=== PATIENT | male | born 1985 | race Two or more races ===

== ENCOUNTER 2020-06-04 17:33 | Emergency (ER) | payer OTHER, SELFPAY ==
[2020-06-04 18:26] VITALS: BP 118/78; PULSE 71; RESP 16; TEMP 37.7; O2SAT 98; BMI 23.7
--- NOTE | 2020-06-04 19:40 | ED.GENADULT ---
HPI - General Adult General Chief complaint: Headache Stated complaint: headache Time Seen by Provider: 06/04/20 19:34 Source: patient Mode of arrival: ambulatory Limitations: no limitations History of Present Illness HPI narrative: patient comes to the emergency room complaining of a headache. 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 Patient has not taking any Tylenol. Patient denies shortness of breath, no allergic reaction, no skin rash, no runny nose, no congestion, no upper respiratory symptoms. MD complaint: Headache Onset (ago): hour(s) Related Data Allergies Allergy/AdvReac Type Severity Reaction Status Date / Time No Known Allergies Allergy Unverified 05/03/20 17:16 [No Known Allergies*] Review of Systems Review of Systems: Constitutional : No Weight loss, No Fever, No Chills, No Night Sweats, No Fatigue, No Malaise ENT/Mouth : No Hearing loss, No Ear Pain, No Nasal Congestion, No Sinus Pain, No Hoarseness, No sore throat, No Rhinorrhea, No Swallowing Difficulty Eyes: No Eye Pain, No Swelling, No Redness, No Foreign Body, No Discharge, No Vision Changes Cardiovascular : No Chest Pain, No SOB, No Dyspnea on Exertion, No Orthopnea, No Edema, No Palpitations Respiratory : No Cough, No Sputum, No Wheezing, No Smoke Exposure, No Dyspnea Gastrointestinal : No Nausea, No Vomiting, No Diarrhea, No Constipation, No abdominal Pain, No Hematochezia, No Melena Genitourinary : no irregular bleeding, No Dysuria, No Urinary Frequency, No Hematuria, No Urinary Incontinence, No Urgency, No Flank Pain, No Urinary Flow Changes, No Hesitancy Musculoskeletal : No joint pain, No Myalgias, No Joint Swelling Skin : No Skin Lesions, No rash Neuro : No Weakness, No Numbness, No Paresthesias, No Loss of Consciousness, No Dizziness, mild Headache Psych : No Anxiety/Panic, No Depression, No SI/HI/AH/VH, No Social Issues, Heme/Lymph: No Bruising, No Bleeding,No Lymphadenopathy Endocrine : No Polyuria, No Polydipsia, No Temperature Intolerance PMFSH Past Medical History Medical History Asthma Social History Social History Advance Directives: No Advance Directives Information Provided: No Physical Exam Vital Signs: Vital Signs: Vital Signs Temp Pulse Resp BP Pulse Ox 06/04/20 18:26 99.9 F 71 16 118/78 98 Body Mass Index 23.7 Appearance: Alert. Oriented X3. No acute distress. Eyes: Pupils equal, round and reactive to light. ENT: Pharynx normal. Neck: Normal inspection. Neck supple. No lymph nodes noted. No crepitus CVS: Normal heart rate and rhythm. Pulses normal. Normal S1 and S2 Respiratory: No respiratory distress. Breath sounds normal. No Wheezing. No rales Abdomen: Soft and nontender. No rigidity. No distention. good BS x4 Skin: Skin warm and dry. Normal skin color. Normal skin turgor. Extremities: No lower extremity edema. No lower extremity edema. No Lacerations. No Rash Neuro: Oriented X 3. No motor deficit. No sensory deficit. Moving all extermities. No slurred speech. Course Course Course Narrative: patient states he is nearly asymptomatic, has mild headache has not taking any Tylenol or ibuprofen yet since this morning Medical Decision Making MDM Narrative Medical decision making narrative: patient has a mild headache, given Tylenol. Patient will follow-up with his primary care physician. Patient has no upper respiratory symptoms to suspect that he had a significant exposure to the insulation material Discharge Plan Discharge Clinical Impression: Headache Patient Disposition: Home, Self-Care Instructions: Acute Headache (ED) Additional Instructions: if you have headache, you may take Tylenol or ibuprofen Please follow-up with your primary care physician tomorrow. If you have any worsening or new symptoms, please return to the emergency room or call 911 Stand Alone Forms: Work/School Release
[2020-06-04] MEDS: Ibuprofen 600 MG TABLET PO (19:46)
== END 2020-06-04 20:00 | disposition home or self-care (01) ==
PROVIDERS: Emergency Provider Emergency Medicine; PCP Internal Medicine
DX: R51.9 Headache, unspecified (principal)
CPT/HCPCS: 99283

== ENCOUNTER 2021-06-01 09:52 | Emergency (ER) | payer OTHER, SELFPAY ==
--- NOTE | ~2021-06-01 | XR_ITS ---
EXAMINATION: XR KNEE, RIGHT CLINICAL INFORMATION: Right-sided knee pain. COMPARISON: None TECHNIQUE: Four views of the right knee. FINDINGS: Bones and soft tissues are normal. No fracture. Small suprapatellar effusion. Alignment is anatomic. Joint spaces are well maintained. No abnormal soft tissue calcification. XR/XR knee RT 4V IMPRESSION: 1. Small suprapatellar effusion. 2. Otherwise unremarkable radiographic appearance of the right knee.
[2021-06-01 10:04] VITALS: BP 128/87; PULSE 81; RESP 18; TEMP 36.1; O2SAT 99; BMI 25.0
--- NOTE | 2021-06-01 10:54 | ED_ITS ---
HPI - Extremity Injury (Lower) General Chief Complaint: Extremity Injury, Lower Stated Complaint: L KNEE INJ Time Seen by Provider: 06/01/21 09:53 Source: patient Mode of arrival: ambulatory History of Present Illness HPI Narrative: 36-year-old male presenting to the ED complaining of atraumatic right knee pain x2 days. Reports associated swelling and pain with movement/ambulation. Denies known injury/trauma or fall/tissue injury. Denies numbness, tingling, weakness complaint: knee injury Related Data Previous Rx's Medication Instructions Recorded albuterol sulfate 90 mcg/actuation 1 puff INHALATION QID 30 Days #8.5 12/10/20 aerosol inhaler g fexofenadine 180 mg tablet 180 mg PO DAILY #90 tab 12/10/20 (Linnea Allergy) acetaminophen 500 mg tablet 500 mg PO Q6H PRN #20 tab 06/01/21 (Tylenol Extra Strength) naproxen 500 mg tablet 500 mg PO BID PRN 10 Days #20 tab 06/01/21 Allergies Allergy/AdvReac Type Severity Reaction Status Date / Time No Known Allergies Allergy Verified 06/07/20 11:39 [No Known Allergies*] Review of Systems 2 Review of Systems: Constitutional: No Fever, No Chills ENT/Mouth: No Ear Pain, No Nasal Congestion, No sore throat Cardiovascular: No Chest Pain, No SOB Respiratory: No Cough Gastrointestinal: No Nausea, No Vomiting, No Diarrhea, No Constipation, No Abdominal pain Genitourinary:, No Dysuria, No Urgency, No Flank Pain Musculoskeletal: + joint pain, No Myalgias, + Joint Swelling Skin: No Skin Lesions, No rash Neuro: No Weakness, No Numbness, No Paresthesias Yes all other systems are reviewed and are negative [facility] Past Medical History Attestation statement: The following information was validated with the patient. Medical History (Updated 06/01/21 @ 11:01 by HERRERA Wells) Allergic rhinitis Asthma Surgical History History of wisdom tooth extraction Family History Family History (Updated 06/06/20 @ 14:52 by SCOTT Chiu) Father Diabetes Mother Alive and well Social History Social History (Updated 12/10/20 @ 16:43 by Timothy Nicole MD) Alcohol intake: current Alcohol intake frequency: holidays/special occasions only Advance Directives: No Advance Directives Information Provided: No Physical Exam Vital Signs: Vital Signs: Last Vital Signs Temp 97.0 F 06/01/21 10:04 Pulse 81 06/01/21 10:04 Resp 18 06/01/21 10:04 BP 128/87 06/01/21 10:04 Pulse Ox 99 06/01/21 10:04 Body Mass Index 25.0 Const: General: cooperative, healthy appearing, no acute distress, well developed, alert and awake Orientation/consciousness: patient oriented x3 Limitations: no limitations HENMT: Head: Yes normal to inspection and Yes atraumatic Ears: hearing grossly normal bilaterally General nose exam: Normal external nose present Face and sinus: Yes normal facial exam Eyes: General: appearance normal, both eyes and all related structures EOM: EOMs intact bilaterally Neck: Neck: Yes normal visual inspection Resp: Effort & Inspection: normal respiratory effort and no respiratory distress Cardio: Rate: regular rate Peripheral pulses: dorsalis pedis present Skin: Rashes: no rashes Wounds: no wounds Neuro: General: patient oriented x3 Gait exam (Neuro): Normal gait present Extrem: Other: Right knee with suprapatellar swelling greater to medial aspect. Tender to palpation. Decreased flexion secondary to pain. Extension WNL. No erythema. Neurovascularly intact distally. No deformity Course Reevaluation(s) Reevaluation #1: XR knee RT 4V IMPRESSION: ? 1. Small suprapatellar effusion. 2. Otherwise unremarkable radiographic appearance of the right knee. >> results discussed with patient. Patient placed in John wrap for comfort/debility. Is to follow up with PCP/Orthopedics as needed. Discussed with patient likely needs MRI outpatient for further eval Time: 10:59 MDM - Extremity Injury (Lower) MDM Narrative Medical decision making narrative: 36-year-old male presenting to the ED complaining of atraumatic right knee pain x2 days. On exam VSS, NAD, physical exam as above. Concern for ligamentous/tendon or meniscal injury without known injury/trauma or fall. Will obtain x-rays. Medical Records Attestation: I reviewed the patient's medical records. Lab Data Attestation: I reviewed the patient's lab results. Discharge Plan Discharge Clinical Impression: Suprapatellar effusion of knee Patient Disposition: Home, Self-Care Instructions: Swollen Knee Joint (ED) Additional Instructions: Your x-ray shows fluid above your knee cap. You likely have a ligamental/tendon or meniscal injury. Wear John wrap at home for comfort/stabilization. Ice and elevate her knee. Follow up with her primary care doctor and Orthopedics as needed. You likely need MRI for further evaluation.Naproxen as an anti- inflammatory/pain medication, take with food. In addition take Tylenol Fagan radiograf?a muestra l?quido por encima de la r?tamika. Es probable que tenga shonda lesi?n de ligamentos, tendones o meniscos. Use la envoltura John en casa para mayor comodidad / estabilizaci?n. Hielo y eleve fagan rodilla. Corine un seguimiento con fagan m?dico de atenci?n primaria y ortopedia seg?n sea necesario. Es probable que necesite shonda resonancia magn?maribell para shonda evaluaci?n adicional.El naproxeno amada medicamento antiinflamatorio / analg?sico, t?forte con las comidas. Adem?s, tome Tylenol Prescriptions: New acetaminophen [Tylenol Extra Strength] 500 mg tablet 500 mg PO Q6H PRN (Reason: pain or fever) Qty: 20 RF: 0 naproxen 500 mg tablet 500 mg PO BID PRN (Reason: pain) 10 Days Qty: 20 RF: 0 No Action fexofenadine [Linnea Allergy] 180 mg tablet 180 mg PO DAILY Qty: 90 RF: 1 albuterol sulfate 90 mcg/actuation HFA aerosol inhaler 1 puff inhalation QID 30 Days Qty: 8.5 RF: 0 Referrals: Po,Timothy Chase MD [Primary Care Provider] - 2 days Salvador Talavera PA-C [Physician System Support Analyst] - 1 week (as needed) Print Language: Senegalese
== END 2021-06-01 11:17 | disposition home or self-care (01) ==
PROVIDERS: Emergency Provider Emergency Medicine; PCP Internal Medicine
DX: M25.461 Effusion, right knee (principal); J45.909 Unspecified asthma, uncomplicated
CPT/HCPCS: 73564; 99283

== ENCOUNTER 2021-07-04 11:22 | Outpatient (REF) | payer OTHER, SELFPAY | END 2021-07-04 11:23 | disposition home or self-care (01) | LOC: HO.HOSX 11:22 | PROVIDERS: Visit Provider Physician Assistant | DX: Z13.89 Encounter for screening for other disorder (principal) ==

== ENCOUNTER 2021-07-29 07:50 | Outpatient (REF) | payer OTHER, SELFPAY | END 2021-07-29 07:51 | disposition home or self-care (01) | LOC: HO.LAB 07:50 | PROVIDERS: Visit Provider Internal Medicine | DX: Z20.822 Contact with and (suspected) exposure to COVID-19 (principal) | CPT/HCPCS: C9803; U0003; U0005 ==

== ENCOUNTER 2021-08-26 14:50 | Outpatient (REF) | payer OTHER, SELFPAY ==
--- NOTE | ~2021-08-26 | XR_ITS ---
EXAMINATION: XR KNEE, RIGHT CLINICAL INFORMATION: Right knee pain. COMPARISON: 06/01/2021 TECHNIQUE: A single sunrise view of the right knee. FINDINGS: No patellofemoral joint space narrowing or obvious degenerative finding. XR/XR knee RT 1V IMPRESSION: No significant degenerative finding or obvious fracture on this single sunrise view.
== END 2021-08-26 14:51 | disposition home or self-care (01) ==
LOC: HO.HOSX 14:50
PROVIDERS: Visit Provider Physician Assistant
DX: M23.91 Unspecified internal derangement of right knee (principal)
CPT/HCPCS: 73560; 99202

== ENCOUNTER 2021-09-12 16:22 | Outpatient (REF) | payer OTHER, SELFPAY ==
--- NOTE | ~2021-09-12 | MR_ITS ---
EXAMINATION: MR KNEE WITHOUT CONTRAST, RIGHT CLINICAL INFORMATION: Right knee pain. COMPARISON: Radiographs 06/01/2021 TECHNIQUE: MRI of the knee without contrast was performed using routine sequences on a high-field scanner. FINDINGS: MENISCI: Medial Meniscus: There is an oblique undersurface tear throughout the posterior horn extending to the meniscal body. A portion of the inner margin/undersurface of the posterior horn is displaced into the meniscotibial recess medially. Lateral Meniscus: Intact. LIGAMENTS: Cruciate: Intact. Collateral: Intact. EXTENSOR MECHANISM: Intact. ARTICULAR CARTILAGE/BONE: Patellofemoral Compartment: Normal. Medial Compartment: Cartilage thinning of the peripheral tibia medially with minimal subchondral marrow edema. Lateral Compartment: Normal. JOINT FLUID AND BURSAE: Small joint effusion. MR/MR knee RT wo con IMPRESSION: Oblique undersurface tear of the posterior horn of the lateral meniscus extending to the meniscal body where a meniscal fragment is displaced into the meniscotibial recess. Small joint effusion.
== END 2021-09-12 16:23 | disposition home or self-care (01) ==
LOC: HO.MRI 16:22
PROVIDERS: Visit Provider Physician Assistant
DX: M23.91 Unspecified internal derangement of right knee (principal)
CPT/HCPCS: 73721

== ENCOUNTER → 2021-09-23 13:38 | Outpatient (BNVA) | payer OTHER, SELFPAY | PROVIDERS: Visit Provider Orthopaedic Surgery | DX: S83.241D Other tear of medial meniscus, current injury, right knee, subsequent encounter (principal) | CPT/HCPCS: 99212 ==

== ENCOUNTER 2021-10-01 16:58 | Emergency (ER) | payer OTHER, SELFPAY ==
[2021-10-01 17:11] VITALS: BP 127/81; PULSE 71; RESP 18; TEMP 36.2; O2SAT 98; BMI 25.7
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
== END 2021-10-01 19:22 | disposition home or self-care (01) ==
PROVIDERS: Emergency Provider Internal Medicine; PCP Internal Medicine
DX: S09.22XA Traumatic rupture of left ear drum, initial encounter (principal); X58.XXXA Exposure to other specified factors, initial encounter; Y93.89 Activity, other specified; Y92.039 Unspecified place in apartment as the place of occurrence of the external cause; Y99.9 Unspecified external cause status
CPT/HCPCS: 99283

== ENCOUNTER → 2021-10-21 14:21 | Outpatient (BNVA) | payer OTHER, SELFPAY | PROVIDERS: PCP Internal Medicine; Visit Provider Physician Assistant | DX: Z01.818 Encounter for other preprocedural examination (principal); S83.241A Other tear of medial meniscus, current injury, right knee, initial encounter | CPT/HCPCS: 99212 ==

== ENCOUNTER 2021-10-30 09:36 | Day surgery (SDC) | payer OTHER, SELFPAY ==
[2021-10-24 13:31] VITALS: BMI 26.7
--- NOTE | 2021-10-28 12:00 | HO.ANESPROP2 ---
Documented by User: Radha Landrum NP 10/28/21 12:00 HPI - Anesthesia Eval Consult details Narrative: 36yo M for Right Knee Arthroscopy PMFSH Active Problems Active Problems: All Active Problems (Updated 10/08/21 @ 12:08 by Sergey Connolly MD) Otitis media of left ear (Acute) Tear of medial meniscus of right knee (Acute) Internal derangement of right knee (Acute) Right knee pain (Acute) Allergic rhinitis (Acute) Annual physical exam (Acute) Asthma (Acute) Headache (Acute) Past Medical History Medical History Allergic rhinitis Asthma Family History Family History Father Diabetes Mother Alive and well Surgical History Surgical History History of wisdom tooth extraction Social History Social History Housing: Apartment Alcohol intake: current Alcohol intake frequency: holidays/special occasions only Patient Tobacco Use Status: Never used Tobacco e-Cigarette/Vaping Use: Never Used Second Hand Smoke Exposure: No Advance Directives Information Provided: Yes Advance Directives on File: No service: No Current occupational status: employed Current occupational exposures/hazards: No Meds Allergies Allergy/AdvReac Type Severity Reaction Status Date / Time No Known Allergies Allergy Verified 10/30/21 10:00 [No Known Allergies*] Home Medications Medication Instructions Recorded Confirmed Last Taken Type albuterol sulfate 90 mcg/actuation 2 puff INHALATION Q4-6H PRN 07/23/21 10/24/21 Unknown History aerosol inhaler Exam Exam Date and Time: October 28, 2021 1200 Height,Weight and Vital Signs: Height 6 ft Weight 89.358 kg Assessment and Plan Assessment Anesthesia Assessment: Chart Reviewed Documented by User: Rohit Lobato MD 10/30/21 10:41 [facility] Past Medical History Medical History Allergic rhinitis Asthma Family History Family History Father Diabetes Mother Alive and well Family history of problems with anesthesia: No Surgical History Surgical History History of wisdom tooth extraction History of Problems with Anesthesia: No Social History Social History Housing: Apartment Alcohol intake: current Alcohol intake frequency: holidays/special occasions only Patient Tobacco Use Status: Never used Tobacco e-Cigarette/Vaping Use: Never Used Second Hand Smoke Exposure: No Advance Directives Information Provided: Yes Advance Directives on File: No service: No Current occupational status: employed Current occupational exposures/hazards: No Meds Allergies Allergy/AdvReac Type Severity Reaction Status Date / Time No Known Allergies Allergy Verified 10/30/21 10:00 [No Known Allergies*] Home Medications Medication Instructions Recorded Confirmed Last Taken Type albuterol sulfate 90 mcg/actuation 2 puff INHALATION Q4-6H PRN 07/23/21 10/24/21 Unknown History aerosol inhaler Exam Airway Mallampati Class: II TM Dist: >3cm Neck ROM: Full Assessment and Plan Assessment Anesthesia Assessment: Anesthesia Plan Discussed Final Anesthetic Review Family History of Problems with Anesthesia: No History of Problems with Anesthesia: No NPO: Yes ASA Class: II Final Preanesthetic Review: No Changes in Pt Med Stat, Meds/Allgs Chart Reviewed, Consent Obtained/Reviewed and Anes Risks/Benef Reviewed Patient Risk: Intermediate Procedure Risk: Low Anesthetic Plan Anesthetic Plan: GA Disposition: Standard PACU
[2021-10-30] VITALS (8 sets, daily range): BP systolic 113–130; BP diastolic 78–92; PULSE 58–70; RESP 16–17; TEMP 36.3–36.8; O2SAT 95–100
[2021-10-30] MEDS: Lactated Ringers 1,000 ML 100 ML IVCONT (10:27)
--- NOTE | 2021-10-30 11:06 | MHC.SHP ---
Pre-Procedural Eval Section A Date of Service: 10/30/21 The patient is an INPATIENT: No Changes since office visit: Yes Patient answered all questions; No Cold of Flu in the past 2 weeks, No New Medical Problems and No Changes in Medication The History & Physical has been completed within 30 days and I have reviewed it.: Yes Section B Chief Complaint: medial meniscus tear Allergies: Allergies Allergy/AdvReac Type Severity Reaction Status Date / Time No Known Allergies Allergy Verified 10/30/21 10:00 [No Known Allergies*] Plan I have reviewed the history and physical and performed a pertinent physical examination on my patient. No changes have occurred unless specified.
--- NOTE | 2021-10-30 12:23 | PM.OP ---
Brief Operative Note Date of Service: 10/30/21 Pre-op diagnosis: right knee medial meniscus tear Post-op diagnosis: same Procedure: right knee partial medial meniscectomy Implants: none Surgeon: Tommie Harvey MD Anesthesia: GETA and local Was an Waterworks Chief Engineer used for this Procedure?: No Estimated blood loss (mL): 0 Tourniquet time (min): 25 IV fluids (mL): 600 Pathology: none sent Condition: stable Disposition: PACU
--- NOTE | 2021-10-30 12:25 | W.PM.OPN ---
Operative Note Operative Note Date of Service: 10/30/21 Narrative: Pre-op diagnosis: right knee medial meniscus tear Post-op diagnosis: same Procedure: right knee partial medial meniscectomy Implants: none Surgeon: Tommie Harvey MD Anesthesia: GETA and local Was an Boiler Mechanic used for this Procedure?: No Estimated blood loss (mL): 0 Tourniquet time (min): 25 IV fluids (mL): 600 Pathology: none sent Condition: stable Disposition: PACU Procedure in detail: Patient was brought to the operating room placed supine on the arthroscopic table and prepped and draped in standard sterile fashion. A time-out was called to identify proper site proper procedure proper surgeon and IV antibiotics per weight were administered. I began by exsanguinating the limb and insufflating tourniquet to 300 mm Hg. Then made a standard anterolateral stab incision. The knee was insufflated with saline and 30 degree arthroscope was placed. There was grade 1 fibrillations of the patella but overall suprapatellar pouch was plane and the gutters were clean. I descended into the medial compartment where I made my medial portal under direct visualization. There was obvious of complex tear of the body and posterior horn of the medial meniscus. There was a large displced zone 2 flap tear that was synovilized and onot repairable. This was resected with a combination of biter and shaver. The root was intact and there was grade 1 changes on the the medial tibial plateau. I used a combination of biter shaver and cautery to remove unstable portions of the meniscus. Approximatelly 35% of the meniscal volume was removed. Once I was satisfied with the medial compartment I eamined the ACL which was intact and the lateral compartment also was normal. I then removed all instrumentation and closed the portals with skin glue. 25 mL of 2% Marcaine with epinephrine was injected into the joint and the surrounding soft tissues. Patient was then placed in sterile dressing extubated brought recovery room stable condition. There were no known complications.
[2021-10-30] MEDS: oxyCODONE HCl Immed Release 5 MG TABLET 10 MG PO (13:32)
== END 2021-10-30 14:29 | disposition home or self-care (01) ==
LOC: HO.SSS 09:36
PROVIDERS: PCP Internal Medicine; Visit Provider Orthopaedic Surgery
PROC: (CPT 29870; principal; 2021-10-30 12:30)
DX: S83.241A Other tear of medial meniscus, current injury, right knee, initial encounter (principal); X58.XXXA Exposure to other specified factors, initial encounter; Y93.9 Activity, unspecified; Y92.9 Unspecified place or not applicable; Y99.8 Other external cause status; J45.909 Unspecified asthma, uncomplicated; Z79.51 Long term (current) use of inhaled steroids
CPT/HCPCS: 29881; J0171; J0690; J1100; J2250; J2405; J3010

== ENCOUNTER → 2021-11-04 09:00 | Outpatient (BNVA) | payer OTHER, SELFPAY | PROVIDERS: Visit Provider Physician Assistant | DX: S83.241D Other tear of medial meniscus, current injury, right knee, subsequent encounter (principal) | CPT/HCPCS: 99212 ==

== ENCOUNTER 2021-12-09 13:00 | Outpatient (RCR) | payer OTHER, SELFPAY ==
--- NOTE | 2021-11-04 09:52 | MHC.PT.EP ---
[facility] [place] [facility] [place] Office [place] Office [address] Dallin Dao [address] [phone] F: [phone] F: [phone] F: [phone] F: [phone] Physical Therapy Plan of Care Date of Evaluation: Date of Surgery: 10/30/21 Diagnosis: RIGHT KNEE MEDIAL MENISECTOMY Assessment: LISBETH IS A PLEASANT 36 YO GENTLEMAN WHO UNDERWENT MEDIAL MENISCECTOMY AND IS NOW BEING SEEN IN PT TO PROGRESS HIS RETURN TO FULL FUNCTION. UPON EXAM HE DEMONSTRATES IMPAIRMENTS OF DECREASED ROM AND STRENGTH, MILD EDEMA, INCREASED PAIN AND ALTERED GAIT AND BALANCE. FUNCTIONAL LIMITATIONS INCLUDE DECREASED ABILITY TO PERFORM HOMEMAKING AND SELF CARE TASKS, DECREASED TOLERANCE TO WALKING, SQUATTING, STAIR NEGOTIATION AND LIFTING. HE REPORTS DECREASED ABILITY TO PARTICIPATE IN WORK TASKS, COMMUNITY ACTIVITIES AND RECREATIONAL ACTIVITIES.A PT IS A GOOD CANDIDATE FOR SKILLED PT DUE TO AGE, POTENTIAL REMEDIATION OF IMPAIRMENTS, TYPICAL DISEASE/CONDITION PROGRESSION AND PROGNOSIS, COMORBIDITIES, AND MOTIVATION. PT WOULD BENEFIT FROM TAILORED PROGRAM OF THERAPEUTIC ACTIVITIES, FUNCTIONAL TRAINING, GAIT TRAINING, POSTURAL EDUCATION, NEUROMUSCULAR RE-EDUCATION, AND MODALITIES NEEDED. 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 Manual therapy to restore motion and function. Therapeutic exercise to improve strength and flexibility. Neuromuscular re-education for posture and balance. Therapeutic activities to return to functional activities of daily living. Electronically signed by: SIMI REAL PT, DPT Please sign and return to therapist. Thank you for your referral.
== END 2022-01-24 10:33 | disposition home or self-care (01) ==
LOC: HO.PT 13:00
PROVIDERS: Visit Provider Physician Assistant
DX: S83.241D Other tear of medial meniscus, current injury, right knee, subsequent encounter (principal)
CPT/HCPCS: 97110; 97161; 97530

== ENCOUNTER 2022-11-20 11:14 | Outpatient (REF) | payer OTHER, SELFPAY ==
[2022-11-22 07:58] LABS: Rubeola IgG (Measles) <13.50 AU/mL
[2022-11-24 22:23] LABS: Rubella IgG Antibody 0.99 Index
== END 2022-11-20 11:15 | disposition home or self-care (01) ==
LOC: HO.LAB 11:14
PROVIDERS: PCP Internal Medicine; Visit Provider Nurse Practitioner Family
DX: Z01.84 Encounter for antibody response examination (principal)
CPT/HCPCS: 36415; 86735; 86762; 86765; 86787

== ENCOUNTER 2023-01-07 15:43 | Outpatient (REF) | payer OTHER, SELFPAY ==
[2023-01-07 15:59] LABS: MANUAL DIFF FLAG NO
[2023-01-07 17:22] LABS: Basophils Absolute Auto 0.1 X10*3/uL (0.0-0.2); Basophils Percent Auto 0.7 % (0-2); Eosinophils Absolute Auto 0.3 X10*3/uL (0.0-0.4); Hematocrit 43.2 % (42.0-52.0); Imm Gran Abs Auto 0.02 X10*3/uL (0.00-0.03); Imm Gran Pct Auto 0.2 % (0.0-0.4); Lymphocytes Absolute Auto 2.6 X10*3/uL (1.2-4.9); Lymphocytes Percent Auto 32.6 % (20-40); Mean Corpuscular Hemoglobin 31.6 pg (27.0-33.0); Mean Corpuscular Volume 85.2 fL (80.0-98.0); Mean Platelet Volume 11.1 fL (9.4-12.4); Monocytes Absolute Auto 0.5 X10*3/uL (0.1-1.2); Monocytes Percent Auto 5.7 % (2-11); Neutrophils Absolute Auto 4.6 x10*3/uL (2.0-8.3); Neutrophils Percent Auto 56.8 % (45-73); Platelet Count 220 X10*3/uL (160-400); Red Blood Count 5.07 X10*6/uL (4.60-5.80); Red Cell Distribution Width 11.9 % (11.0-16.0); White Blood Count 8.1 X10*3/uL (4.8-10.8)
[2023-01-07 18:11] LABS: Alanine Aminotransferase 92 U/L (0-40); Albumin Level 4.3 g/dL (3.5-5.0); Alkaline Phosphatase 68 U/L (39-117); Anion Gap 15 (12-20); Aspartate Amino Transferase 98 U/L (5-37); Blood Urea Nitrogen 12 mg/dL (9-16); Calcium 9.4 mg/dL (8.4-10.2); Carbon Dioxide 27 mmol/L (22-29); Chloride 103 mmol/L (96-108); Cholesterol 123 mg/dL; Estimated Glomerular Filt Rate > 60; Glucose Random 73 mg/dL (60-115); HDL Cholesterol 26 mg/dL; Sodium 141 mmol/L (135-145); Total Protein 7.6 g/dL (6.5-8.0); Triglycerides 654 mg/dL
[2023-01-07 18:26] LABS: TSH reflex Free T4 2.02 uIU/mL (0.32-4.0)
[2023-01-14 03:03] LABS: Rubeola IgG (Measles) >300.00 AU/mL
== END 2023-01-07 15:44 | disposition home or self-care (01) ==
LOC: HO.LAB 15:43
PROVIDERS: Nurse Practitioner Family; PCP Internal Medicine; Visit Provider Internal Medicine
DX: Z02.0 Encounter for examination for admission to educational institution (principal); Z13.29 Encounter for screening for other suspected endocrine disorder; Z13.0 Encounter for screening for diseases of the blood and blood-forming organs and certain disorders involving the immune mechanism; Z13.220 Encounter for screening for lipoid disorders
CPT/HCPCS: 36415; 80053; 80061; 84443; 85025; 86735; 86762; 86765

== ENCOUNTER 2023-01-09 15:52 | Outpatient (REF) | payer OTHER, SELFPAY ==
[2023-01-09 17:50] LABS: Alanine Aminotransferase 62 U/L (0-40); Albumin Level 4.3 g/dL (3.5-5.0); Alkaline Phosphatase 66 U/L (39-117); Anion Gap 12 (12-20); Aspartate Amino Transferase 89 U/L (5-37); Bilirubin Total 0.9 mg/dL (0.0-1.0); Blood Urea Nitrogen 9 mg/dL (9-16); Calcium 9.7 mg/dL (8.4-10.2); Carbon Dioxide 29 mmol/L (22-29); Chloride 104 mmol/L (96-108); Estimated Glomerular Filt Rate > 60; Glucose Random 76 mg/dL (60-115); Potassium 3.9 mmol/L (3.3-5.1); Sodium 141 mmol/L (135-145)
[2023-01-12 08:22] LABS: HBS Num1 210.75 mIU/mL (0-7.99); HBc Num1 0.04 S/CO (0.00-0.79); HBsAGNum1 0.34 S/CO (0.00-0.99); Hepatitis A Antibody IgM 0.18 Index (0-0.79); Hepatitis B Core Antibody Nonreactive (Nonreactive); Hepatitis B Surface Antigen Negative (Negative); ~HepC Num1 0.14 S/CO (0.00-0.79); ~Hepatitis A Antibody IgM Nonreactive (Nonreactive); ~Hepatitis B Surface Antibody REACTIVE (Nonreactive); ~Hepatitis C Antibody Nonreactive (Nonreactive)
== END 2023-01-09 15:53 | disposition home or self-care (01) ==
LOC: HO.LAB 15:52
PROVIDERS: PCP Internal Medicine; Visit Provider Nurse Practitioner Family
DX: R79.89 Other specified abnormal findings of blood chemistry (principal)
CPT/HCPCS: 36415; 80053; 86704; 86706; 86709; 86803; 87340

== ENCOUNTER 2023-02-04 08:37 | Outpatient (REF) | payer OTHER, SELFPAY ==
--- NOTE | ~2023-02-04 | US_ITS ---
EXAMINATION: US ABDOMEN LIMITED CLINICAL INFORMATION: Other specified abnormal findings of blood chemistry. COMPARISON: None available. TECHNIQUE: Real-time imaging of the right upper quadrant abdominal viscera. FINDINGS: PANCREAS: Most of the pancreas was obscured by bowel gas and could not be evaluated. LIVER: The liver is enlarged measuring almost 20 cm in greatest length and demonstrates increased echogenicity consistent with hepatic steatosis. The liver contour is normal. No focal hepatic lesion. There is no intrahepatic biliary duct dilatation seen. GALLBLADDER: Normal. The gallbladder is physiologically distended without evidence of stones, sludge, polyps, wall thickening or pericholecystic fluid. COMMON BILE DUCT: Normal in caliber measuring 0.3 cm in diameter. RIGHT KIDNEY: Normal. No hydronephrosis. No renal calculi or focal parenchymal lesions. The kidney measures 11.7 cm in maximum dimension. FREE FLUID: None. US/US abdomen limited IMPRESSION: Enlarged fatty liver.
== END 2023-02-04 08:38 | disposition home or self-care (01) ==
LOC: HO.US 08:37
PROVIDERS: PCP Internal Medicine; Visit Provider Nurse Practitioner Family
DX: R79.89 Other specified abnormal findings of blood chemistry (principal)
CPT/HCPCS: 76705

== ENCOUNTER 2023-12-16 13:00 | Outpatient (AMB) | payer OTHER, SELFPAY ==
[2023-12-16 13:05] VITALS: BP 112/86; PULSE 73; O2SAT 97; BMI 26.3
--- NOTE | 2023-12-16 13:05 | MHC.PC.OV ---
Vital Signs 12/16/23 13:05 Height 6 ft 1 in Weight 199 lb 0.8 oz BMI 26.3 BP 112/86 Blood Pressure Location Lt brachial Position Sitting Pulse 73 Pulse Source Pulse Oximeter Pulse Oximetry (%) 97 Oxygen Delivery Method Room Air Intake Visit Reasons: Annual Exam Intake Note: Patient is here today for a physical. 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 Last seen in November 2022. Review of the notes in January 2023 had an ultrasound of the liver showing fatty liver diagnosis of had hepatic steatosis Luma [id number] has not been taking cholesterol med and needs inhaler. noted 3rd finger swelling [facility] Medical History (Updated 12/16/23 @ 13:38 by Timothy Nicole MD) Elevated LFTs Ringing in left ear Otitis media of left ear Right knee pain Allergic rhinitis Asthma Surgical History History of knee surgery History of wisdom tooth extraction Family History (Updated 12/12/22 @ 13:46 by BROOKLYN Martínez) Father Diabetes Mother Alive and well Social History (Updated 12/12/22 @ 13:47 by BROOKLYN Martínez) Housing: Apartment Alcohol intake: never Patient Tobacco Use Status: Never used Tobacco e-Cigarette/Vaping Use: Never Used Second Hand Smoke Exposure: No service: No Current occupational status: employed Current occupational exposures/hazards: No Cognitive needs: No Hearing needs: No Vision needs: No Questionnaire PHQ-9 Over the last 2 weeks, how often have you been bothered by any of the following problems? 1. Little interest or pleasure in doing things: not at all 2. Feeling down, depressed, or hopeless: not at all 3. Trouble falling or staying asleep, or sleeping too much: not at all 4. Feeling tired or having little energy: not at all 5. Poor appetite or overeating: not at all 6. Feeling bad about yourself - or that you are a failure or have let yourself or your family down: not at all 7. Trouble concentrating on things, such as reading the newspaper or watching television: not at all 8. Moving or speaking so slowly that other people could have noticed. Or the opposite - being so fidgety or restless that you have been moving around a lot more than usual: not at all 9. Thoughts that you would be better off or of hurting yourself in some way: not at all Total score: 0 Depression Screening Interpretation: Negative Depression Screening Done: Yes 78016 - PHQ-9 Billing: Yes Source: Developed by Drs. Stevan Feldman, Dee Collins, Kojo Bautista and colleagues, with an educational mari from [employer]. Thrive Questionnaire Date Thrive assessed: 12/16/23 I am a: Patient What is your living situation today?: I have a steady place to live Within the past 12 months, did the food you bought not last and you didn't have the money to get more?: Never true Within the past 12 months, did you worry whether your food would run out before you got money to buy more?: Never true Do you have trouble paying for medicines?: No Do you have trouble getting transportation to medical appointments?: No Do you have trouble paying your heating and electricity bill?: No Do you have trouble taking care of your child, family member or friend?: No Do you have trouble with day-to-day activities such as bathing, preparing meals, shopping, managing finances, etc.?: No Are you currently unemployed and looking for a job?: No Are you interested in more education?: No Please select the resources that you would like help with: None Currently or been in a relationship where the following occur: no concerns reported THRIVE Score: 0 AUDIT C Alcohol Use Questionnaire (AUDIT-C) 1. How often do you have a drink containing alcohol?: Monthly or less 2. How many drinks containing alcohol do you have on a typical day when you are drinking?: 1 or 2 Total Score: 1 Score Reviewed/Action Taken: No PREET-7 AMB Questionnaire PREET-7 Date PREET - 7 assessed: 12/16/23 Feeling nervous, anxious, or on edge: 0 = Not at all Not being able to stop or control worryin = Not at all Worrying too much about different things: 0 = Not at all Trouble relaxin = Not at all Being so restless that it is hard to sit still: 0 = Not at all Becoming easily annoyed or irritable: 0 = Not at all Feeling afraid as if something awful might happen: 0 = Not at all Total PREET-7 score (0-4 normal; 5-9 mild; 10-14 moderate; 15-21 severe): 0 Source: Developed by Drs. Stevan Feldman, Dee Collins, Kojo Bautista and colleagues, with an educational mari from [employer]. PREET-7 Assessment Billing PREET-7 Assessment Tool: PREET-7 Assessment 60818 Review of Systems Const Denies poor appetite and Denies weakness Eyes Denies no additional complaints ENT Reports Normal hearing present, Denies dizziness, Denies nasal congestion, Denies tinnitus and Denies sore throat Card Denies chest pain, Denies syncope, Denies rapid heart rate and Denies dyspnea Resp Denies cough and Denies dyspnea GI Denies change in stool character, Reports constipation, Denies diarrhea, Denies nausea and Denies vomiting Denies dysuria and Denies urinary frequency Neuro Reports Normal hearing present, Denies confusion, Denies dizziness, Denies syncope and Denies weakness Psych Denies confusion Physical exam (Primary Care) Vital Signs: Oxygen Delivery Method Room Air 12/16/23 13:05 Tobacco/Smoking Status: Tobacco use Status Tobacco use date assessed 12/16/23 12/16/23 13:06 Patient Tobacco Use Status Never used Tobacco 12/16/23 13:05 e-Cigarette/Vaping Use Never Used 12/16/23 13:05 Depression Screening Interpretation: Negative Thrive Assessment: Date of Thrive Assessment Date Thrive assessed 12/16/23 12/16/23 13:06 Currently or been in a relationship where the following occur: no concerns reported Const General: No confusion Orientation/consciousness: No confusion HENMT Head: Yes normocephalic Ears: external ears normal and TM's normal bilaterally Face and sinus: Yes normal facial exam Mouth: moist mucous membranes Throat: Yes tonsils normal Eyes Conjunctivae: conjunctivae normal Pupils: Equal, round and reactive pupils present and Pupil accommodation reflex normal Direct Ophthalmoscopy: normal light reflex Neck Neck: No lymphadenopathy Thyroid: Thyroid normal Chest Chest palpation & inspection: normal inspection of the chest Resp Effort & Inspection: normal respiratory effort and no audible wheezes Auscultation: clear to auscultation bilaterally, no crackles, no wheezes and lung sounds not diminished Cardio Rate: regular rate Rhythm: regular rhythm Peripheral pulses: radial pulses present and dorsalis pedis present GI Palpation (GI): no masses Auscultation: normal bowel sounds and normoactive bowel sounds Rectal Exam - Male: Yes deferred Skin General skin exam: no rashes or lesions noted Rashes: no rashes Full body images: 1. mild r inguinal bulge Neuro General: No confusion Cranial nerves: Yes Equal, round and reactive pupils present and Yes Normal hearing present Cognition (Neuro): normal cognition Gait exam (Neuro): Normal gait present Motor exam (neuro): 5/5 motor strength present throughout Deep tendon reflexes (DTR's): Right brachioradialis reflex intensity grade: 2+, Left brachioradialis reflex intensity grade: 2+, Right patellar reflex intensity grade: 2+ and Left patellar reflex intensity grade: 2+ Extrem General: No edema Hand/finger images: 1. swelling and red base of nail - 3rd finger with seperation of the nail Assessment and Plan Assessment & Plan (1) Annual physical exam: Code(s): Z00.00 - Encounter for general adult medical examination without abnormal findings (2) Asthma: Code(s): J45.909 - Unspecified asthma, uncomplicated Qualifiers: Asthma severity: mild Asthma persistence: intermittent Asthma complication type: uncomplicated Qualified Code(s): J45.20 - Mild intermittent asthma, uncomplicated Plan: Presently on albuterol (3) Overweight (BMI 25.0-29.9): Code(s): E66.3 - Overweight Plan: Continue with diet and exercise (4) Fatty liver: Code(s): K76.0 - Fatty (change of) liver, not elsewhere classified Plan: Low-fat diet and exercise (5) Hypertriglyceridemia: Code(s): E78.1 - Pure hyperglyceridemia Plan: Discussed my concerns about high triglyceride. Avoid fried foods, chicken skin, eggs, butter margarine, pastries and meat. Be it pork or beef they have a lot of cholesterol LDL goal of less than 130 and triglyceride of less than 150. (6) Vitamin B12 deficiency: Code(s): E53.8 - Deficiency of other specified B group vitamins Plan: will retest (7) Paronychia of finger of left hand: Comment: 3rd finger Code(s): L03.012 - Cellulitis of left finger Orders: Orders Comprehensive Met. Panel Today E78.1 - Pure hyperglyceridemia Free T4 (Free Thyroxine) Today E78.1 - Pure hyperglyceridemia Thyroid Stimulating Hormone Today E78.1 - Pure hyperglyceridemia Lipid Panel Today E78.00 - Pure hypercholesterolemia, unspecified, E78.1 - Pure hyperglyceridemia Vitamin B12 and Folate Today E78.1 - Pure hyperglyceridemia Complete Blood Count Auto Diff Today E78.1 - Pure hyperglyceridemia Medications: New amoxicillin-pot clavulanate 875-125 mg 1 tab PO BID 14 tabs 0RF L03.012 - Cellulitis of left finger Refilled albuterol sulfate 90 mcg/actuation 2 puffs inhalation Q4-6H 90 days PRN 8.5 grams 0RF Pain J45.20 - Mild intermittent asthma, uncomplicated Coding Level of Care Code Est Pt Prev Care 18-39y(87690) Diagnoses Annual physical exam Z00.00 Mild intermittent asthma without complication J45.20 Asthma severity: mild Asthma persistence: intermittent Asthma complication type: uncomplicated Overweight (BMI 25.0-29.9) E66.3 Fatty liver K76.0 Hypertriglyceridemia E78.1 Vitamin B12 deficiency E53.8 Paronychia of finger of left hand L03.012 Additional Codes PREET-7 Assessment Billing - PREET-7 Assessment Tool: PREET-7 Assessment [id number] ([id number])
== END 2023-12-16 14:46 | disposition home or self-care (01) ==
PROVIDERS: Visit Provider Internal Medicine
DX: Z00.00 Encounter for general adult medical examination without abnormal findings (principal); J45.20 Mild intermittent asthma, uncomplicated; E66.3 Overweight; K76.0 Fatty (change of) liver, not elsewhere classified; E78.1 Pure hyperglyceridemia; E53.8 Deficiency of other specified B group vitamins; L03.012 Cellulitis of left finger
CPT/HCPCS: 99395

== ENCOUNTER 2024-07-18 16:41 | Outpatient (AMB) | payer OTHER, SELFPAY ==
[2024-07-18 16:52] VITALS: BP 126/80; PULSE 64; O2SAT 99; BMI 26.5
--- NOTE | 2024-07-18 16:52 | A.OFFPC_ITS ---
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 Last seen in December 2023. interpret. PAtient has been forgetting a lot of things and not able to finish work. PAtient did finsh up to 12th grade MMSE done . . [facility] Medical History (Updated 07/18/24 @ 17:27 by Timothy Nicole MD) Cognitive impairment Elevated LFTs Ringing in left ear Otitis media of left ear Right knee pain Allergic rhinitis Asthma Surgical History History of knee surgery History of wisdom tooth extraction Family History Father Diabetes Mother Alive and well Social History Housing: Apartment Alcohol intake: never Patient Tobacco Use Status: Never used Tobacco e-Cigarette/Vaping Use: Never Used Second Hand Smoke Exposure: No service: No Current occupational status: employed Current occupational exposures/hazards: No Cognitive needs: No Hearing needs: No Vision needs: No Questionnaire Thrive Questionnaire Date Thrive assessed: 12/16/23 AUDIT C Alcohol Use Questionnaire (AUDIT-C) 3. How often do you have six or more drinks on one occasion?: Never Total Score: 0 PREET-7 AMB Questionnaire PREET-7 Date PREET - 7 assessed: 12/16/23 Source: Developed by Drs. Stevan Feldman, Dee Collins, Kojo Bautista and colleagues, with an educational mari from [employer]. Physical exam (Primary Care) Vital Signs: Last Vital Signs Pulse 64 07/18/24 16:52 BP 126/80 12/02/24 16:52 Pulse Ox 99 07/18/24 16:52 Oxygen Delivery Method Room Air 07/18/24 16:52 BMI result Body Mass Index 26.5 Tobacco/Smoking Status: Tobacco use Status Tobacco use date assessed 12/16/23 07/18/24 17:01 Patient Tobacco Use Status Never used Tobacco 07/18/24 17:01 e-Cigarette/Vaping Use Never Used 07/18/24 17:01 Thrive Assessment: Date of Thrive Assessment Date Thrive assessed 12/16/23 07/18/24 17:01 Const General: alert; No acute distress Eyes Conjunctivae: conjunctivae normal Resp Auscultation: clear to auscultation bilaterally Cardio Rate: regular rate Rhythm: regular rhythm GI Inspection: Yes normal to inspection Extrem General: Yes normal to inspection and No edema Office Procedures Flu Questionnaire Does the patient have a severe egg allergy?: No Does the patient have severe life threatening allergies?: No Does the patient have a fever or illness today?: No Has the patient ever had Guillain-[place] Syndrome?: No Has the patient ever had any past reaction to a flu shot?: No Immunizations Fluarix Triv [id number] (PF) 45 mcg (15 mcg x 3)/0.5 mL IM syringe Performing Provider: Timothy Nicole MD Per[facility] Administered by: SCOTT Valdez on 07/18/24 17:01 Dose Route Admin Location Dispensed Lot Number Expiration Date [facility] Division Service Manager 0.5 mL IM Left Deltoid 0.5 mL [id number] 02/13/25 91570-853-12 [facility] V[facility] Given Date VIS Provided VIS Publication Date 07/18/24 Single Vaccine 24 Eligibility Eligibility Date Funding Source Not [facility] Eligible 07/18/24 Private Coding Level of Care Code Est Pt Level 4 (39212) Diagnoses Mild intermittent asthma without complication J45.20 Asthma complication type: uncomplicated Asthma persistence: intermittent Asthma severity: mild Hypertriglyceridemia E78.1 Fatty liver K76.0 Overweight (BMI 25.0-29.9) E66.3 Attention deficit disorder (ADD) in adult F98.8 Assessment & Plan Assessment & Plan (1) Asthma: Code(s): J45.909 - Unspecified asthma, uncomplicated Category: Medical Qualifiers: Asthma complication type: uncomplicated Asthma persistence: intermittent Asthma severity: mild Qualified Code(s): J45.20 - Mild intermittent asthma, uncomplicated Plan: Patient is stable and not requiring any inhaler. (2) Hypertriglyceridemia: Code(s): E78.1 - Pure hyperglyceridemia Category: Medical Plan: Avoid fried foods, chicken skin, eggs, butter margarine, pastries and meat. Be it pork or beef they have a lot of cholesterol LDL goal of less than 130 and triglyceride of less than 150. Patient was advised to get blood work done (3) Fatty liver: Code(s): K76.0 - Fatty (change of) liver, not elsewhere classified Category: Medical Plan: Low-fat diet and exercise and patient was advised to get blood work done. (4) Overweight (BMI 25.0-29.9): Code(s): E66.3 - Overweight Category: Medical Plan: Patient was advised to keep active. (5) Attention deficit disorder (ADD) in adult: Code(s): F98.8 - Other specified behavioral and emotional disorders with onset usually occurring in childhood and adolescence Category: Medical Plan: referral with psychiatric evaluation Orders: Orders Influenza [id number] Immunization Today Z23 - Encounter for immunization Referrals Psychiatry Outpatient Consultation Service F98.8 - Other specified behavioral and emotional disorders with onset usually occurring in childhood and adolescence
== END 2024-07-18 17:38 | disposition home or self-care (01) ==
PROVIDERS: PCP Internal Medicine; Visit Provider Internal Medicine
DX: J45.20 Mild intermittent asthma, uncomplicated (principal); E78.1 Pure hyperglyceridemia; K76.0 Fatty (change of) liver, not elsewhere classified; E66.3 Overweight; F98.8 Other specified behavioral and emotional disorders with onset usually occurring in childhood and adolescence; Z23 Encounter for immunization

== ENCOUNTER → 2024-07-18 16:41 | Outpatient (BNVA) | payer OTHER, SELFPAY | PROVIDERS: PCP Internal Medicine; Visit Provider Internal Medicine | DX: Z23 Encounter for immunization (principal); J45.20 Mild intermittent asthma, uncomplicated; E78.1 Pure hyperglyceridemia; K76.0 Fatty (change of) liver, not elsewhere classified; E66.3 Overweight | CPT/HCPCS: 90471; 90656; 99212 ==

== ENCOUNTER 2024-07-19 08:25 | Outpatient (REF) | payer OTHER, SELFPAY ==
[2024-07-19 08:50] LABS: MANUAL DIFF FLAG NO
[2024-07-19 09:49] LABS: Basophils Percent Auto 0.7 % (0-2); Eosinophils Absolute Auto 0.1 X10*3/uL (0.0-0.4); Eosinophils Percent Auto 1.7 % (0-4); Hematocrit 45.3 % (42.0-52.0); Hemoglobin 15.9 g/dl (14.0-18.0); Imm Gran Abs Auto 0.01 X10*3/uL (0.00-0.03); Imm Gran Pct Auto 0.2 % (0.0-0.4); Lymphocytes Absolute Auto 1.3 X10*3/uL (1.2-4.9); Lymphocytes Percent Auto 22.1 % (20-40); Mean Corpuscular HGB Conc 35.1 g/dl (31.0-36.0); Mean Corpuscular Hemoglobin 30.2 pg (27.0-33.0); Mean Corpuscular Volume 86.1 fL (80.0-98.0); Monocytes Absolute Auto 0.4 X10*3/uL (0.1-1.2); Monocytes Percent Auto 6.4 % (2-11); Neutrophils Percent Auto 68.9 % (45-73); Platelet Count 186 X10*3/uL (160-400); Red Blood Count 5.26 X10*6/uL (4.60-5.80); Red Cell Distribution Width 12.2 % (11.0-16.0); White Blood Count 5.8 X10*3/uL (4.8-10.8)
[2024-07-19 10:36] LABS: Alanine Aminotransferase 64 U/L (0-40); Albumin Level 4.4 g/dL (3.5-5.0); Alkaline Phosphatase 71 U/L (39-117); Anion Gap 11 (12-20); Aspartate Amino Transferase 81 U/L (5-37); Bilirubin Total 1.5 mg/dL (0.0-1.0); Blood Urea Nitrogen 8 mg/dL (9-16); Calcium 9.5 mg/dL (8.4-10.2); Carbon Dioxide 29 mmol/L (22-29); Chloride 104 mmol/L (96-108); Cholesterol 125 mg/dL (<200); Estimated Glomerular Filt Rate > 60; Glucose Random 89 mg/dL (60-115); HDL Cholesterol 28 mg/dL (>40); LDL Cholesterol Calculated 63 mg/dL (<100); Potassium 4.3 mmol/L (3.3-5.1); Sodium 140 mmol/L (135-145); Total Protein 7.3 g/dL (6.5-8.0); Triglycerides 172 mg/dL (<150)
[2024-07-19 10:43] LABS: Free T4 (Free Thyroxine) 1.03 ng/dL (0.71-1.85); Thyroid Stimulating Hormone 2.94 uIU/mL (0.32-4.0)
[2024-07-19 11:01] LABS: Folate 14.4 ng/mL (> or = 4.0); Vitamin B12 319 pg/mL (200-900)
== END 2024-07-19 08:26 | disposition home or self-care (01) ==
LOC: HO.LAB 08:25
PROVIDERS: PCP Internal Medicine; Visit Provider Internal Medicine
DX: E78.1 Pure hyperglyceridemia (principal); E78.00 Pure hypercholesterolemia, unspecified
CPT/HCPCS: 36415; 80053; 80061; 82607; 82746; 84439; 84443; 85025

== ENCOUNTER 2024-09-08 13:18 | Outpatient (AMB) | payer OTHER, SELFPAY ==
--- NOTE | 2024-09-08 13:49 | MHC.PC.OV ---
Vital Signs 09/08/24 14:03 Height 6 ft 1 in Weight 199 lb BMI 26.3 BP 124/72 Blood Pressure Location Lt brachial Position Sitting Pulse 80 Pulse Source Pulse Oximeter Temp 97.3 F Temp Source Temporal Artery Scan Pulse Oximetry (%) 99 Oxygen Delivery Method Room Air Intake Visit Reasons: Go over forms Complaint Supervisor Required: No Accompanied by: Spouse Allergies No Known Allergies [No Known Allergies*] Allergy (Verified 09/08/24 14:15) Tobacco use date assessed: 09/08/24 Dental Screening Dental Screen Date: 09/08/24 Did you have a dental visit in the last 12 months?: Yes Did you have a dental problem in the last 6 months where you did not have access to dental care?: No Was dental information given to patient?: Patient has dentist HPI Go over forms HPI Details form filled The patient is a 39-year-old male presenting with concerns regarding potential Attention-Deficit/Hyperactivity Disorder (ADHD) and the management of chronic health conditions. The patient has exhibited symptoms suggestive of ADHD since rn peritoneal dialysis, characterized by distractibility and forgetfulness. There is a documented history of special education classes with an unclear diagnosis. The patient's mother reported persistent difficulties starting from the first grade, with a history of therapy at age 14. Current concerns include organizational abilities and the potential impact on daily functioning and responsibilities. Additionally, The conversation included inquiries about attending a psychiatric assessment for ADHD, with efforts made to schedule an evaluation. Chronic conditions discussed include elevated kidney function with a creatinine level of 1.02, suggesting slightly above normal kidney function for age. Recommendations have been made to avoid nonsteroidal anti-inflammatory drugs to mitigate renal strain. Discussions on liver health revealed two liver enzymes slightly elevated above the typical threshold of 34, indicating possible ongoing hepatic involvement. Furthermore, the patient is managing hypertriglyceridemia, having demonstrated elevated triglyceride levels peaking at 654 in 2022, now reduced to 172 with dietary adjustment. Recommendations emphasize a continued focus on dietary modification to address triglyceride levels, encouraging low-fat and low-cholesterol food choices. Cholesterol levels have improved with dietary changes, and ongoing evaluation remains a focus to achieve goal levels. FOR[facility], LATER [facility] Medical History (Updated 07/18/24 @ 17:27 by Timothy Nicole MD) Cognitive impairment Elevated LFTs Ringing in left ear Otitis media of left ear Right knee pain Allergic rhinitis Asthma Surgical History History of knee surgery History of wisdom tooth extraction Family History Father Diabetes Mother Alive and well Social History Housing: Apartment Alcohol intake: never Patient Tobacco Use Status: Never used Tobacco e-Cigarette/Vaping Use: Never Used Second Hand Smoke Exposure: No service: No Current occupational status: employed Current occupational exposures/hazards: No Cognitive needs: No Hearing needs: No Vision needs: No Questionnaire PHQ-9 Over the last 2 weeks, how often have you been bothered by any of the following problems? 1. Little interest or pleasure in doing things: not at all 2. Feeling down, depressed, or hopeless: not at all 3. Trouble falling or staying asleep, or sleeping too much: not at all 4. Feeling tired or having little energy: not at all 5. Poor appetite or overeating: not at all 6. Feeling bad about yourself - or that you are a failure or have let yourself or your family down: not at all 7. Trouble concentrating on things, such as reading the newspaper or watching television: not at all 8. Moving or speaking so slowly that other people could have noticed. Or the opposite - being so fidgety or restless that you have been moving around a lot more than usual: not at all 9. Thoughts that you would be better off or of hurting yourself in some way: not at all Total score: 0 Depression Screening Interpretation: Negative Depression Screening Done: Yes 97170 - PHQ-9 Billing: Yes Source: Developed by Drs. Stevan Feldman, Dee Collins, Kojo Bautista and colleagues, with an educational mari from [employer]. Thrive Questionnaire Date Thrive assessed: 09/08/24 I am a: Patient What is your living situation today?: I have a steady place to live Within the past 12 months, did the food you bought not last and you didn't have the money to get more?: Never true Within the past 12 months, did you worry whether your food would run out before you got money to buy more?: Never true Do you have trouble paying for medicines?: No Do you have trouble getting transportation to medical appointments?: No Do you have trouble paying your heating and electricity bill?: No Do you have trouble taking care of your child, family member or friend?: No Do you have trouble with day-to-day activities such as bathing, preparing meals, shopping, managing finances, etc.?: No Are you currently unemployed and looking for a job?: No Are you interested in more education?: No Please select the resources that you would like help with: None Currently or been in a relationship where the following occur: No concerns reported THRIVE Score: 0 AUDIT C Alcohol Use Questionnaire (AUDIT-C) 1. How often do you have a drink containing alcohol?: Never 3. How often do you have six or more drinks on one occasion?: Never Total Score: 0 PREET-7 AMB Questionnaire PREET-7 Date PREET - 7 assessed: 09/08/24 Feeling nervous, anxious, or on edge: 0 = Not at all Not being able to stop or control worryin = Not at all Worrying too much about different things: 0 = Not at all Trouble relaxin = Not at all Being so restless that it is hard to sit still: 0 = Not at all Becoming easily annoyed or irritable: 0 = Not at all Feeling afraid as if something awful might happen: 0 = Not at all Total PREET-7 score (0-4 normal; 5-9 mild; 10-14 moderate; 15-21 severe): 0 Source: Developed by Drs. Stevan Feldman, Dee Collins, Kojo Bautista and colleagues, with an educational mari from [employer]. PREET-7 Assessment Billing PREET-7 Assessment Tool: PREET-7 Assessment 63767 Physical exam (Primary Care) Vital Signs: Last Vital Signs Temp 97.3 F 09/08/24 14:03 Pulse 80 09/08/24 14:03 BP 124/72 09/08/24 14:03 Pulse Ox 99 09/08/24 14:03 Oxygen Delivery Method Room Air 09/08/24 14:03 BMI result Body Mass Index 26.3 Tobacco/Smoking Status: Tobacco use Status Tobacco use date assessed 09/08/24 09/08/24 14:16 Patient Tobacco Use Status Never used Tobacco 09/08/24 13:50 e-Cigarette/Vaping Use Never Used 09/08/24 13:50 PHQ-9: PHQ-9 Score PHQ-9: Total score 0 09/08/24 14:24 Depression Screening Interpretation: Negative Thrive Assessment: Date of Thrive Assessment Date Thrive assessed 09/08/24 09/08/24 13:50 Currently or been in a relationship where the following occur: No concerns reported Const General: alert; No acute distress Eyes Conjunctivae: conjunctivae normal Resp Auscultation: clear to auscultation bilaterally Cardio Rate: regular rate Rhythm: regular rhythm GI Inspection: Yes normal to inspection Extrem General: Yes normal to inspection and No edema Coding Level of Care Code Est Pt Level 4 (44620) Diagnoses Mild intermittent asthma without complication J45.20 Asthma complication type: uncomplicated Asthma persistence: intermittent Asthma severity: mild Hypertriglyceridemia E78.1 Overweight (BMI 25.0-29.9) E66.3 Fatty liver K76.0 Additional Codes PREET-7 Assessment Billing - PREET-7 Assessment Tool: PREET-7 Assessment 81073 ([id number]) PHQ-9 - 23708 - PHQ-9 Billing: Yes ([id number]) Assessment & Plan Assessment & Plan (1) Asthma: Code(s): J45.909 - Unspecified asthma, uncomplicated Category: Medical Qualifiers: Asthma complication type: uncomplicated Asthma persistence: intermittent Asthma severity: mild Qualified Code(s): J45.20 - Mild intermittent asthma, uncomplicated (2) Hypertriglyceridemia: Code(s): E78.1 - Pure hyperglyceridemia Category: Medical (3) Overweight (BMI 25.0-29.9): Code(s): E66.3 - Overweight Category: Medical (4) Fatty liver: Code(s): K76.0 - Fatty (change of) liver, not elsewhere classified Category: Medical Plan - Schedule for psychiatric evaluation to confirm diagnosis and management of Attention-Deficit/Hyperactivity Disorder ADHD). - Advise continued adherence to dietary modifications to manage hypertriglyceridemia, with a focus on reducing intake of fried foods, fast foods, and high-cholesterol items, emphasizing healthier fats and portion control. - Monitor renal function regularly and advise avoidance of nephrotoxic medications such as ibuprofen and Aleve; recommend using Tylenol where necessary. - Routine monitoring of liver function tests to evaluate ongoing hepatic involvement and adjust lifestyle factors as needed to maintain liver health. - Continued management of lupus with existing therapeutic regimen and regular assessment of disease activity. - Provide education on flu season precautions due to heightened risk, including reinforcing flu shot receipt and advising on preventive measures against respiratory and gastrointestinal viruses. Patient was informed and verbally consented to the use of an ambient scribe for clinic note documentation during this visit.
[2024-09-08 14:03] VITALS: BP 124/72; PULSE 80; TEMP 36.3; O2SAT 99; BMI 26.3
== END 2024-09-08 16:41 | disposition home or self-care (01) ==
PROVIDERS: PCP Internal Medicine; Visit Provider Internal Medicine
DX: J45.20 Mild intermittent asthma, uncomplicated (principal); E78.1 Pure hyperglyceridemia; E66.3 Overweight; K76.0 Fatty (change of) liver, not elsewhere classified

== ENCOUNTER → 2024-09-08 13:18 | Outpatient (BNVA) | payer OTHER, SELFPAY | PROVIDERS: PCP Internal Medicine; Visit Provider Internal Medicine | DX: J45.20 Mild intermittent asthma, uncomplicated (principal); E78.1 Pure hyperglyceridemia; E66.3 Overweight; K76.0 Fatty (change of) liver, not elsewhere classified | CPT/HCPCS: 96127; 99212 ==

== ENCOUNTER 2024-10-24 16:50 | Outpatient (AMB) | payer OTHER, SELFPAY ==
--- NOTE | 2024-10-24 16:51 | MHC.PC.OV ---
Vital Signs 10/24/24 16:52 Height 6 ft 1 in Weight 206 lb 6 oz BMI 27.2 BP 122/86 Blood Pressure Location Lt brachial Position Sitting Pulse 84 Pulse Source Pulse Oximeter Pulse Oximetry (%) 98 Oxygen Delivery Method Room Air Intake Visit Reasons: hypertriglyceridemia, Attention deficit Clothing Busheler Required: No Accompanied by: Self / Same As Patient Allergies No Known Allergies [No Known Allergies*] Allergy (Verified 10/24/24 16:54) Medication List - Last Reconciled 10/24/24 by Timothy Nicole MD No Known Home Meds Tobacco use date assessed: 10/24/24 Dental Screening Dental Screen Date: 10/24/24 Did you have a dental visit in the last 12 months?: No Did you have a dental problem in the last 6 months where you did not have access to dental care?: No Was dental information given to patient?: No HPI hypertriglyceridemia, Attention deficit 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 [facility] Medical History (Updated 07/18/24 @ 17:27 by Timothy Nicole MD) Cognitive impairment Elevated LFTs Ringing in left ear Otitis media of left ear Right knee pain Allergic rhinitis Asthma Surgical History History of knee surgery History of wisdom tooth extraction Family History Father Diabetes Mother Alive and well Social History Housing: Apartment Alcohol intake: never Patient Tobacco Use Status: Never used Tobacco e-Cigarette/Vaping Use: Never Used Second Hand Smoke Exposure: No service: No Current occupational status: employed Current occupational exposures/hazards: No Cognitive needs: No Hearing needs: No Vision needs: No Questionnaire PHQ-9 Over the last 2 weeks, how often have you been bothered by any of the following problems? 1. Little interest or pleasure in doing things: not at all 2. Feeling down, depressed, or hopeless: not at all 3. Trouble falling or staying asleep, or sleeping too much: not at all 4. Feeling tired or having little energy: not at all 5. Poor appetite or overeating: not at all 6. Feeling bad about yourself - or that you are a failure or have let yourself or your family down: not at all 7. Trouble concentrating on things, such as reading the newspaper or watching television: not at all 8. Moving or speaking so slowly that other people could have noticed. Or the opposite - being so fidgety or restless that you have been moving around a lot more than usual: not at all 9. Thoughts that you would be better off or of hurting yourself in some way: not at all Total score: 0 Depression Screening Interpretation: Negative Depression Screening Done: Yes 94943 - PHQ-9 Billing: Yes Source: Developed by Drs. Stevan Feldman, Dee Collins, Kojo Bautista and colleagues, with an educational mari from [employer]. Thrive Questionnaire Date Thrive assessed: 10/24/24 I am a: Patient What is your living situation today?: I have a steady place to live Within the past 12 months, did the food you bought not last and you didn't have the money to get more?: Never true Within the past 12 months, did you worry whether your food would run out before you got money to buy more?: Never true Do you have trouble paying for medicines?: No Do you have trouble getting transportation to medical appointments?: No Do you have trouble paying your heating and electricity bill?: No Do you have trouble taking care of your child, family member or friend?: No Do you have trouble with day-to-day activities such as bathing, preparing meals, shopping, managing finances, etc.?: No Are you currently unemployed and looking for a job?: No Are you interested in more education?: No Please select the resources that you would like help with: None Currently or been in a relationship where the following occur: No concerns reported THRIVE Score: 0 AUDIT C Alcohol Use Questionnaire (AUDIT-C) 1. How often do you have a drink containing alcohol?: Never 3. How often do you have six or more drinks on one occasion?: Never Total Score: 0 PREET-7 AMB Questionnaire PREET-7 Date PREET - 7 assessed: 10/24/24 Feeling nervous, anxious, or on edge: 0 = Not at all Not being able to stop or control worryin = Not at all Worrying too much about different things: 0 = Not at all Trouble relaxin = Not at all Being so restless that it is hard to sit still: 0 = Not at all Becoming easily annoyed or irritable: 0 = Not at all Feeling afraid as if something awful might happen: 0 = Not at all Total PREET-7 score (0-4 normal; 5-9 mild; 10-14 moderate; 15-21 severe): 0 Source: Developed by Drs. Stevan Feldman, Dee Collins, Kojo Bautista and colleagues, with an educational mari from [employer]. PREET-7 Assessment Billing PREET-7 Assessment Tool: PREET-7 Assessment 40754 Physical exam (Primary Care) Vital Signs: Last Vital Signs Pulse 84 10/24/24 16:52 BP 122/86 10/24/24 16:52 Pulse Ox 98 10/24/24 16:52 Oxygen Delivery Method Room Air 10/24/24 16:52 BMI result Body Mass Index 27.2 Tobacco/Smoking Status: Tobacco use Status Tobacco use date assessed 10/24/24 10/24/24 17:00 Patient Tobacco Use Status Never used Tobacco 10/24/24 17:00 e-Cigarette/Vaping Use Never Used 10/24/24 17:00 PHQ-9: PHQ-9 Score PHQ-9: Total score 0 10/24/24 17:19 Depression Screening Interpretation: Negative Thrive Assessment: Date of Thrive Assessment Date Thrive assessed 10/24/24 10/24/24 17:00 Currently or been in a relationship where the following occur: No concerns reported Const General: alert; No acute distress Eyes Conjunctivae: conjunctivae normal Resp Auscultation: clear to auscultation bilaterally Cardio Rate: regular rate Rhythm: regular rhythm GI Inspection: Yes normal to inspection Extrem General: Yes normal to inspection and No edema Coding Level of Care Code Est Pt Level 4 (05511) Diagnoses Mild intermittent asthma without complication J45.20 Asthma complication type: uncomplicated Asthma persistence: intermittent Asthma severity: mild Hypertriglyceridemia E78.1 Fatty liver K76.0 Overweight (BMI 25.0-29.9) E66.3 Additional Codes PREET-7 Assessment Billing - PREET-7 Assessment Tool: PREET-7 Assessment 16098 ([id number]) PHQ-9 - 52943 - PHQ-9 Billing: Yes ([id number]) Assessment & Plan Assessment & Plan (1) Asthma: Code(s): J45.909 - Unspecified asthma, uncomplicated Category: Medical Qualifiers: Asthma complication type: uncomplicated Asthma persistence: intermittent Asthma severity: mild Qualified Code(s): J45.20 - Mild intermittent asthma, uncomplicated Plan: stable (2) Hypertriglyceridemia: Code(s): E78.1 - Pure hyperglyceridemia Category: Medical Plan: Avoid the foods that causes that usually spicy foods, tomato products, juices, coffee, soda and foods that your sensitive to. After eating do not lie down, allow 3-4 hours before in lie down. And keep the head of bed above 30 degrees to avoid the acid from going up. (3) Fatty liver: Code(s): K76.0 - Fatty (change of) liver, not elsewhere classified Category: Medical Plan: Low-fat diet and exercise (4) Overweight (BMI 25.0-29.9): Code(s): E66.3 - Overweight Category: Medical Plan: Diet and exercise Plan History of Present Illness The patient is a 39-year-old male presenting with a follow-up appointment. His medical history includes asthma, hypercholesterolemia, nonalcoholic fatty liver disease, ADHD, and obesity. Since his last visit in August 2022, a 7-pound weight gain has been noted alongside a continued struggle with obesity. Previous exams and blood tests from July reported normal blood counts and renal function but did indicate elevated liver function consistent with NAFLD and increased triglycerides. Discussion included patient eating habits contributing to weight gain and lifestyle modifications were advised to address the problem. Attention was also drawn to the need for a psychiatric evaluation for ADHD symptoms, a referral for which had not yet resulted in a scheduling call. Health Maintenance - Low-fat diet and regular exercise for weight management and hypercholesterolemia - Caution advised regarding pain medications such as ibuprofen, Aleve, and Advil - Discuss precautions against flu, COVID, and RSV due to respiratory nature of conditions Social History - Overeating noted, particularly unhealthy food choices contributing to weight gain - Emphasis on the necessity of lifestyle changes including diet and exercise Review of Systems - Respiratory: Reports an increase in food intake and weight gain Physical Exam - Cardiovascular- Heart assessment observed, no swelling in the legs noted Results - Labs: Normal blood count, normal electrolytes, normal renal function, elevated liver function test consistent with fatty liver, elevated triglycerides Plan The plan includes reinforcing dietary and exercise regimens to manage weight gain and hypercholesterolemia. Monitoring liver function due to NAFLD is essential, with attention to previous elevated liver indicators. Patient has been advised to limit the use of pain medications due to renal concerns. A follow-up on the ADHD psychiatric evaluation referral is pending. Preventive actions against flu, COVID, and RSV are discussed given their respiratory implications. Patient was informed and verbally consented to the use of an ambient scribe for clinic note documentation during this visit. Discussion Notes During the visit, I discussed with the patient the importance of adhering to a low-fat diet and regular exercise to address his weight gain and hypercholesterolemia, emphasizing the benefits of such lifestyle changes. I warned the patient to avoid routine use of certain pain medications unless absolutely necessary due to renal impact, despite normal current evaluations. The patient was informed that the psychiatric referral for ADHD requires follow-up, which would be pursued for scheduling. Preventive guidance against flu, COVID-19, and RSV was provided considering respiratory risks. We agreed on this management plan. Patient Instructions - Follow a low-fat diet and engage in regular physical exercise. - Avoid [id number] pain medications such as ibuprofen, Advil, and Aleve unless necessary. - Expect a follow-up call for ADHD psychiatric evaluation. - Be cautious of flu, COVID-19, and RSV exposure. - Report any significant changes in symptoms or new health concerns promptly. Medications: New albuterol sulfate 90 mcg/actuation (Proair Digihaler) 2 inhalations inhalation Q4-6H PRN 1 ea 0RF shortness of breath or wheezing J45.20 - Mild intermittent asthma, uncomplicated
[2024-10-24 16:52] VITALS: BP 122/86; PULSE 84; O2SAT 98; BMI 27.2
== END 2024-10-24 17:35 | disposition home or self-care (01) ==
PROVIDERS: PCP Internal Medicine; Visit Provider Internal Medicine
DX: J45.20 Mild intermittent asthma, uncomplicated (principal); E78.1 Pure hyperglyceridemia; K76.0 Fatty (change of) liver, not elsewhere classified; E66.3 Overweight

== ENCOUNTER → 2024-10-24 16:50 | Outpatient (BNVA) | payer OTHER, SELFPAY | PROVIDERS: PCP Internal Medicine; Visit Provider Internal Medicine | DX: J45.20 Mild intermittent asthma, uncomplicated (principal); E78.1 Pure hyperglyceridemia; K76.0 Fatty (change of) liver, not elsewhere classified; E66.3 Overweight | CPT/HCPCS: 96127; 99212 ==

== ENCOUNTER 2024-12-15 10:12 | Outpatient (AMB) | payer OTHER, SELFPAY ==
--- NOTE | 2024-12-15 10:34 | MHC.OFFVISPS ---
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 He is seen today with a hospital physician interventional cardiologist. He reports no depression and no anxiety. He completed a Italian ADHD adult self report scale and scored 2/12 for ADHD. He tells me he was in special education classes throughout his schooling and graduated in 12th grade without a diploma but was able to get his GED. He reports short term recall and forgetfulness are the biggest problems for him. He is not overwhelemed by increased activity or noise. He does not lose his temper. He is not hyperactive. His filled out a ADHD scale with what she felt were his scores and on that he is scored at 8/18. Pt does not want medication for his attention or focus. He is more interested in natural remedies and strategies to manage. Past Psychiatric History: dx with ADHD and learning problems in childhood; was in special ed but no medication treatment. no hx psych ot [facility]. Subjective Subjective Subjective Medication Compliance: Yes Side effects from medications: No Review of Systems Medical Review of Systems: unchanged Mental Status Exam Mental Status Exam Patient Appearance: Well Grooomed and Appropriate Patient Orientation: Person, Place, Time and Situation Level of Consciousness: Awake and Appropriate Patient Behavior: Appropriate and Cooperative Mood Description: Calm and Appropriate Affect Description: Calm and Appropriate Patient Cognition Impaired: No Ability to Follow Directions: Good Speech Pattern: Clear and Appropriate Memory Description: Episodic Impaired, Recent Impaired and Working Impaired Hallucinations: None Delusions: Not Present Thought Process: Intact and Goal Oriented Thought Content: positive for Intact and positive for Goal Oriented Judgement: Good Assessment and Plan Assessment & Plan (1) Attention deficit disorder predominant inattentive type: Status: Acute Code(s): F98.8 - Other specified behavioral and emotional disorders with onset usually occurring in childhood and adolescence Plan pt does not want pharmaceutical medication for treatment at this time discussed non-pharm strategies recommend [place] 3 fish oil supplement Vitamin B12 500-1000 mcg daily Vitamin D3 1000 IU daily Keeps list of things need to remember such as a task list Counseling and coordination of Care Pt. Self Management counseling: Maintenance-social rhythm, Mod caffeine/ETOH intake, Nutrition education and improvement, Sleep hygiene and General coping skills Medication management counseling: Effectiveness, Side effects, Dosing range, Duration, Drug interaction and Adherence Diagnosis and Prognosis Counseling: Accuracy of diagnosis, Prognosis over time, Impact of diagnosis on life functions, Impact of family relationship, Problematic behaviors secondary to diagnosis and Adequacy of current interventions Details: I spent 65 minutes reviewing the record, seeing the patient and documenting in the medical record. Counseling provided to the patient/caregiver as outlined below. Addressed patient/caregiver concerns regarding current medication regime including effective adherence. Addressed patient/caregiver concerns regarding diagnosis and prognosis including accuracy of diagnosis, prognosis over time, impact of diagnosis. Addressed patient/caregiver concerns regarding impact of recent stressors. [facility] Medical History (Updated 12/15/24 @ 11:42 by Radhika Wells APRN) Attention deficit disorder (ADD) in adult Cognitive impairment Elevated LFTs Ringing in left ear Otitis media of left ear Right knee pain Allergic rhinitis Asthma Surgical History History of knee surgery History of wisdom tooth extraction Family History Father Diabetes Mother Alive and well Social History Housing: Apartment Alcohol intake: never Patient Tobacco Use Status: Never used Tobacco e-Cigarette/Vaping Use: Never Used Second Hand Smoke Exposure: No service: No Current occupational status: employed Current occupational exposures/hazards: No Cognitive needs: No Hearing needs: No Vision needs: No Social History: lives with and 8 children- 1 bio , 4 step, and 3 foster 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
== END 2024-12-15 11:37 | disposition home or self-care (01) ==
LOC: HO.HOP 10:12
PROVIDERS: PCP Internal Medicine; Visit Provider Clinical Nurse Specialist Psychiatric/Mental Health
DX: F98.8 Other specified behavioral and emotional disorders with onset usually occurring in childhood and adolescence (principal)
CPT/HCPCS: 90792

== ENCOUNTER → 2024-12-15 10:12 | Outpatient (BNVA) | payer OTHER, SELFPAY | PROVIDERS: PCP Internal Medicine; Visit Provider Clinical Nurse Specialist Psychiatric/Mental Health | DX: F98.8 Other specified behavioral and emotional disorders with onset usually occurring in childhood and adolescence (principal) | CPT/HCPCS: 90792 ==

== ENCOUNTER 2024-12-19 17:26 | Outpatient (AMB) | payer OTHER, SELFPAY ==
--- NOTE | 2024-12-19 17:27 | A.OFFPC_ITS ---
Vital Signs 12/19/24 17:28 Height 6 ft 1 in Weight 205 lb BMI 27.0 BP 116/86 Blood Pressure Location Lt brachial Position Sitting Pulse 66 Pulse Source Pulse Oximeter Pulse Oximetry (%) 97 Oxygen Delivery Method Room Air Intake Visit Reasons: annual exam Intake Note: Patient here for a physical exam Human Resources File Clerk Required: Yes Human Resources File Clerk Language: Tunisian Accompanied by: Self / Same As Patient Allergies No Known Allergies [No Known Allergies*] Allergy (Verified 12/19/24 17:32) Medication List - Last Reconciled 12/19/24 by Timothy Nicole MD albuterol sulfate 90 mcg/actuation (Proair Digihaler) 2 inhalations inhalation Q4-6H PRN Tobacco use date assessed: 10/24/24 Dental Screening Dental Screen Date: 10/24/24 HPI annual exam HPI Details Sd [id number] stateless interpret [facility] Medical History (Updated 12/19/24 @ 18:04 by Timothy Nicole MD) Attention deficit disorder (ADD) in adult Cognitive impairment Elevated LFTs Ringing in left ear Otitis media of left ear Right knee pain Allergic rhinitis Asthma Surgical History History of knee surgery History of wisdom tooth extraction Family History Father Diabetes Mother Alive and well Social History Housing: Apartment Alcohol intake: never Patient Tobacco Use Status: Never used Tobacco e-Cigarette/Vaping Use: Never Used Second Hand Smoke Exposure: No service: No Current occupational status: employed Current occupational exposures/hazards: No Cognitive needs: No Hearing needs: No Vision needs: No Questionnaire PHQ-9 Over the last 2 weeks, how often have you been bothered by any of the following problems? 1. Little interest or pleasure in doing things: not at all 2. Feeling down, depressed, or hopeless: not at all 3. Trouble falling or staying asleep, or sleeping too much: not at all 4. Feeling tired or having little energy: not at all 5. Poor appetite or overeating: not at all 6. Feeling bad about yourself - or that you are a failure or have let yourself or your family down: not at all 7. Trouble concentrating on things, such as reading the newspaper or watching television: not at all 8. Moving or speaking so slowly that other people could have noticed. Or the opposite - being so fidgety or restless that you have been moving around a lot more than usual: not at all 9. Thoughts that you would be better off or of hurting yourself in some way: not at all Total score: 0 Depression Screening Interpretation: Negative Depression Screening Done: Yes Source: Developed by Drs. Stevan Feldman, Dee Collins, Kojo Bautista and colleagues, with an educational mari from [employer]. Thrive Questionnaire Date Thrive assessed: 10/24/24 I am a: Patient What is your living situation today?: I have a steady place to live Within the past 12 months, did the food you bought not last and you didn't have the money to get more?: Never true Within the past 12 months, did you worry whether your food would run out before you got money to buy more?: Never true Do you have trouble paying for medicines?: No Do you have trouble getting transportation to medical appointments?: No Do you have trouble paying your heating and electricity bill?: No Do you have trouble taking care of your child, family member or friend?: No Do you have trouble with day-to-day activities such as bathing, preparing meals, shopping, managing finances, etc.?: No Are you currently unemployed and looking for a job?: No Are you interested in more education?: No Please select the resources that you would like help with: None Currently or been in a relationship where the following occur: No concerns reported THRIVE Score: 0 PREET-7 AMB Questionnaire PREET-7 Date PREET - 7 assessed: 12/19/24 Feeling nervous, anxious, or on edge: 0 = Not at all Not being able to stop or control worryin = Not at all Worrying too much about different things: 0 = Not at all Trouble relaxin = Not at all Being so restless that it is hard to sit still: 0 = Not at all Becoming easily annoyed or irritable: 0 = Not at all Feeling afraid as if something awful might happen: 0 = Not at all Total PREET-7 score (0-4 normal; 5-9 mild; 10-14 moderate; 15-21 severe): 0 Source: Developed by Drs. Stevan Feldman, Dee Collins, Kojo Bautista and colleagues, with an educational mari from [employer]. Review of Systems Const Denies poor appetite and Denies weakness Eyes Denies no additional complaints ENT Reports Normal hearing present, Denies dizziness, Denies nasal congestion, Denies tinnitus and Denies sore throat Card Denies chest pain, Denies syncope, Denies rapid heart rate and Denies dyspnea Resp Denies cough and Denies dyspnea GI Denies change in stool character, Reports constipation, Denies diarrhea, Denies nausea and Denies vomiting Denies dysuria and Denies urinary frequency Neuro Reports Normal hearing present, Denies confusion, Denies dizziness, Denies syncope and Denies weakness Psych Denies confusion Physical exam (Primary Care) Vital Signs: Last Vital Signs Pulse 66 12/19/24 17:28 BP 116/86 12/19/24 17:28 Pulse Ox 97 12/19/24 17:28 Oxygen Delivery Method Room Air 12/19/24 17:28 BMI result Body Mass Index 27.0 Tobacco/Smoking Status: Tobacco use Status Tobacco use date assessed 10/24/24 12/19/24 17:34 Patient Tobacco Use Status Never used Tobacco 12/19/24 17:34 e-Cigarette/Vaping Use Never Used 12/19/24 17:34 PHQ-9: PHQ-9 Score PHQ-9: Total score 0 12/19/24 18:09 Depression Screening Interpretation: Negative Thrive Assessment: Date of Thrive Assessment Date Thrive assessed 10/24/24 12/19/24 17:34 Currently or been in a relationship where the following occur: No concerns reported Const General: No confusion Orientation/consciousness: No confusion HENMT Head: Yes normocephalic Ears: external ears normal and TM's normal bilaterally Face and sinus: Yes normal facial exam Mouth: moist mucous membranes Throat: Yes tonsils normal Eyes Conjunctivae: conjunctivae normal Pupils: Equal, round and reactive pupils present and Pupil accommodation reflex normal Direct Ophthalmoscopy: normal light reflex Neck Neck: No lymphadenopathy Thyroid: Thyroid normal Chest Chest palpation & inspection: normal inspection of the chest Resp Effort & Inspection: normal respiratory effort and no audible wheezes Auscultation: clear to auscultation bilaterally, no crackles, no wheezes and lung sounds not diminished Cardio Rate: regular rate Rhythm: regular rhythm Peripheral pulses: radial pulses present and dorsalis pedis present GI Other: Visual rectal exam is negative Palpation (GI): no masses Auscultation: normal bowel sounds and normoactive bowel sounds Rectal Exam - Male: Yes deferred Other: Noted umbilicus mild hernia Male General Exam: Yes normal external exam Skin General skin exam: no rashes or lesions noted Rashes: no rashes Neuro General: No confusion Cranial nerves: Yes Equal, round and reactive pupils present and Yes Normal hearing present Cognition (Neuro): normal cognition Gait exam (Neuro): Normal gait present Motor exam (neuro): 5/5 motor strength present throughout Deep tendon reflexes (DTR's): Right brachioradialis reflex intensity grade: 2+, Left brachioradialis reflex intensity grade: 2+, Right patellar reflex intensity grade: 2+ and Left patellar reflex intensity grade: 2+ Extrem General: No edema Immunizations pneumoc 20-susie conj-dip cr(PF) 0.5 mL IM syringe Performing Provider: Timothy Nicole MD [facility] Administered by: SCOTT Valdez on 12/19/24 18:09 Dose Route Admin Location Dispensed Lot Number Expiration Date [facility] Hand I Thermal Cutter 0.5 mL IM Left Deltoid 0.5 mL [id number] 10/15/25 [employer] VIS Given Date VIS Provided VIS Publication Date 12/19/24 Single Vaccine 22 Eligibility Eligibility Date Funding Source Not [facility] Eligible 12/19/24 Private Coding Level of Care Code Est Pt Prev Care 40-64y(09934) Diagnoses Annual physical exam Z00.00 Mild intermittent asthma without complication J45.20 Asthma complication type: uncomplicated Asthma persistence: intermittent Asthma severity: mild Hypertriglyceridemia E78.1 Fatty liver K76.0 Overweight (BMI 25.0-29.9) E66.3 Attention deficit disorder predominant inattentive type F98.8 Allergic rhinitis J30.9 Umbilical hernia K42.9 Assessment & Plan Assessment & Plan (1) Annual physical exam: Code(s): Z00.00 - Encounter for general adult medical examination without abnormal findings Category: Medical Plan: Patient is advised to eat healthy, keep well hydrated, keep active and have adequate sleep. n (2) Asthma: Code(s): J45.909 - Unspecified asthma, uncomplicated Category: Medical Qualifiers: Asthma complication type: uncomplicated Asthma persistence: intermittent Asthma severity: mild Qualified Code(s): J45.20 - Mild intermittent asthma, uncomplicated Plan: Continue with albuterol inhaler as needed (3) Hypertriglyceridemia: Code(s): E78.1 - Pure hyperglyceridemia Category: Medical Plan: Avoid fried foods, chicken skin, eggs, butter margarine, pastries and meat. Be it pork or beef they have a lot of cholesterol LDL goal of less than 130 and triglyceride of less than 150. (4) Fatty liver: Code(s): K76.0 - Fatty (change of) liver, not elsewhere classified Category: Medical Plan: Low-fat diet and exercise (5) Overweight (BMI 25.0-29.9): Code(s): E66.3 - Overweight Category: Medical Plan: Diet and exercise (6) Attention deficit disorder predominant inattentive type: Code(s): F98.8 - Other specified behavioral and emotional disorders with onset usually occurring in childhood and adolescence Category: Medical Plan: Continue to follow-up with psychiatry. (7) Allergic rhinitis: Code(s): J30.9 - Allergic rhinitis, unspecified Category: Medical (8) Umbilical hernia: Code(s): K42.9 - Umbilical hernia without obstruction or gangrene Category: Medical Plan History of Present Illness The patient is a 39-year-old male presenting with a need for a physical exam. He manages chronic conditions including asthma, where he uses an albuterol inhaler as needed. He had difficulty obtaining the inhaler due to pharmacy access issues, but no exacerbations were reported. His fatty liver disease and hypercholesterolemia are monitored through regular blood work, with instructions to maintain specific levels through diet and exercise. The difficulty obtaining the inhaler is noted and plans to remedy pharmacy access are in place. A consistent low-fat diet and exercise regimen is maintained to manage lipid levels, and efforts focus on preventive strategies to mitigate progression of hyperlipidemia and liver anomalies. An umbilical hernia has been identified, with recommendations to avoid heavy lifting. The patient?s history of attention deficit is acknowledged with ongoing psychiatric support, and allergic rhinitis symptoms related to pollen exposure are noted though not currently medicatively managed. Social habits are reviewed with no use of alcohol, tobacco, or illicit substances reported. Health Maintenance - Continued use of albuterol inhaler as needed for asthma - Low fat diet and regular exercise to manage cholesterol levels - Plan to maintain triglycerides under 150 and LDL under 130 - Pneumonia vaccination recommended due to asthma - Allergy management with pulq-nhi-tfgklen medication as needed - Periodic follow-up with psychiatry for attention deficit disorder Social History - No reported use of alcohol, tobacco, or recreational drugs - Engages in a low-fat diet and regular exercise Review of Systems - Respiratory: Reports no shortness of breath, denies chest pain - Cardiovascular: Denies palpitations - Gastrointestinal: Denies nausea, vomiting, heartburn, and issues with bowel movement - Genitourinary: No nocturia beyond once per night, denies dysuria - Neurological: Denies dizziness, headaches, syncope - General: Denies fever and fatigue - Allergies: Experiences seasonal allergy symptoms Physical Exam General: Cooperative, healthy appearing, comfortable, no acute distress and well developed Orientation: Patient oriented x3 Limitations: No limitations Head: Normal to inspection Ears: Hearing grossly normal bilaterally Nose: Normal external nose present Face and sinus: Normal facial exam Eyes: Appearance normal, both eyes and all related structures Neck: Normal visual inspection and Yes full ROM Respiratory: Normal respiratory effort and able to speak in complete sentences. Clear to auscultation bilaterally Cardiovascular: Regular rate and rhythm. Normal S1 and S2 GI: Normal to inspection. Soft to palpation and nontender. Umbilical hernia noted Skin: No rashes or lesions noted Neuro: Patient oriented x3 Extremities: Normal to inspection Results - Labs: Elevated triglycerides at 172, elevated liver function tests in past - Previous screening: Normal blood count, normal electrolytes, normal renal function Plan The approach for this patient is integrative, focusing on addressing chronic and preventive healthcare issues effectively. Continued use of the albuterol inhaler will be monitored, and access issues resolved. Managing cholesterol is prioritized through diet and exercise, with clear targets for lipid levels. Psychiatric evaluations provide comprehensive oversight for attention deficit management. Snzh-zlw-thgsnhj allergy medication is considered upon patient discretion for symptom ease. The identified umbilical hernia requires avoidance of strain, although surgical intervention is deferred for the moment. Preventive care with pneumonia vaccination is advised aligned to asthma management protocols. These strategies incorporate patient engagement in safeguarding optimal health outcomes. Patient was informed and verbally consented to the use of an ambient scribe for clinic note documentation during this visit. Discussion Notes In our discussion, I emphasized the importance of maintaining control over asthma with the regular use of rescue inhaler and addressed any concerns he had about refilling his prescription. We talked about his lipid management, reinforcing the importance of diet and exercise in controlling triglycerides and LDL levels as part of his cardiovascular risk management plan. I advised about the benefits of seasonal allergy medications available over the counter and discussed symptoms related to his umbilical hernia that suggests avoiding lifting heavy items. We also reviewed the need for the pneumonia vaccine due to his history of asthma, explaining the preventive advantages. Follow-up psychiatric consultations remain important for his attention deficit disorder management, fostering continuity of care across chronic conditions. Further, the necessity of regular assessment and patient-initiated communication about his condition and management arises for seamless health oversight. Patient Instructions - Use your inhaler as prescribed for asthma. - Maintain a low-fat diet and keep up with the regular exercise. - Consider using kzut-lxu-[id number] allergy medication if symptoms persist. - Avoid heavy lifting and report any changes related to your hernia. - Remember to schedule your pneumonia vaccine as discussed. Orders: Orders Pneumococcal 20 Immunization Today Z23 - Encounter for immunization Medications: New albuterol sulfate 90 mcg/actuation 2 puffs inhalation Q4-6H PRN 8.5 grams 0RF Shortness Of Breath J45.20 - Mild intermittent asthma, uncomplicated, J45.909 - Unspecified asthma, uncomplicated loratadine 10 mg PO DAILY 90 tabs 0RF J30.9 - Allergic rhinitis, unspecified Discontinued albuterol sulfate 90 mcg/actuation (Proair Digihaler) Discontinued Reason: Doctor's Order 2 inhalations inhalation Q4-6H PRN 1 ea 0RF shortness of breath or wheezing J45.20 - Mild intermittent asthma, uncomplicated
[2024-12-19 17:28] VITALS: BP 116/86; PULSE 66; O2SAT 97; BMI 27.0
== END 2024-12-19 18:15 | disposition home or self-care (01) ==
LOC: HO.HMCH 17:27
PROVIDERS: PCP Internal Medicine; Visit Provider Internal Medicine
DX: Z00.00 Encounter for general adult medical examination without abnormal findings (principal); J45.20 Mild intermittent asthma, uncomplicated; E78.1 Pure hyperglyceridemia; K76.0 Fatty (change of) liver, not elsewhere classified; E66.3 Overweight; F98.8 Other specified behavioral and emotional disorders with onset usually occurring in childhood and adolescence; J30.9 Allergic rhinitis, unspecified; K42.9 Umbilical hernia without obstruction or gangrene; Z23 Encounter for immunization

== ENCOUNTER → 2024-12-19 17:26 | Outpatient (BNVA) | payer OTHER, SELFPAY | PROVIDERS: PCP Internal Medicine; Visit Provider Internal Medicine | DX: Z00.00 Encounter for general adult medical examination without abnormal findings (principal); Z23 Encounter for immunization; J45.20 Mild intermittent asthma, uncomplicated; E78.1 Pure hyperglyceridemia; K76.0 Fatty (change of) liver, not elsewhere classified; E66.3 Overweight; Z68.27 Body mass index [BMI] 27.0-27.9, adult; F98.8 Other specified behavioral and emotional disorders with onset usually occurring in childhood and adolescence; J30.9 Allergic rhinitis, unspecified; K42.9 Umbilical hernia without obstruction or gangrene | CPT/HCPCS: 90471; 90677; 99396 ==